=== PATIENT | male | born 1985 | race Two or more races ===

== ENCOUNTER 2017-07-29 08:20 | Emergency (ER) | payer OTHER ==
[2017-07-29 08:27] VITALS: BP 118/73; PULSE 81; TEMP 98; BMI 29.4
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
== END 2017-07-29 09:22 | disposition home or self-care (01) ==
LOC: JERFT 08:20
DX: S63.501A Unspecified sprain of right wrist, initial encounter (principal); X58.XXXA Exposure to other specified factors, initial encounter; Y93.89 Activity, other specified; Y92.9 Unspecified place or not applicable; F17.210 Nicotine dependence, cigarettes, uncomplicated
CPT/HCPCS: 73110-TC-RT-FY; 99282-25

== ENCOUNTER 2021-08-09 17:22 | Emergency (ER) | payer OTHER ==
[2021-08-09 17:35] VITALS: BP 105/64; PULSE 79; TEMP 98.2; BMI 27.5
[2021-08-09 20:38] LABS: BASO % 0.6 % (0-2.0); EOS % 1.5 % (0-4.5); HEMATOCRIT 47.5 % (35.4-49); HEMOGLOBIN 16.2 GM/dL (11.7-16.9); LYMPH % 36.2 % (8-40); MCHC 34.1 g/dl (32.0-35.9); MEAN CELL VOLUME 90.9 fl (80-96); MEAN PLT VOLUME 7.2 fl (7.5-11.1); MONO % 7.1 % (3.8-10.2); NEUT % 54.6 % (42.8-82.8); PLATELET COUNT 268 10^3/uL (134-434); RBC 5.22 M/mm3 (4.00-5.60); RDW 13.4 % (11.9-15.9); WHITE BLOOD COUNT 11.5 K/mm3 (4.0-10.0)
[2021-08-09 20:57] LABS: CALCIUM 9.3 mg/dL (8.5-10.1)
[2021-08-09 20:58] LABS: ALBUMIN 4.2 g/dl (3.4-5.0)
[2021-08-09 21:01] LABS: CREATININE 0.8 mg/dL (0.55-1.3)
[2021-08-09 21:02] LABS: TOT PROT 7.3 g/dl (6.4-8.2)
[2021-08-09 21:03] LABS: BILIRUBIN,TOTAL 0.4 mg/dL (0.2-1)
== END 2021-08-09 22:36 | disposition home or self-care (01) ==
LOC: JER 17:22
DX: R07.89 Other chest pain (principal)
CPT/HCPCS: 36415; 71046-TC-FY; 80053; 84484; 85025; 85379; 93005; 93010; 99284-25

== ENCOUNTER 2023-06-09 16:17 | Emergency (ER) | payer OTHER ==
[2023-06-09 16:36] VITALS: BP 124/64; PULSE 77; RESP 18; TEMP 98.6; BMI 28.3
[2023-06-09] MEDS ORDERED: ACETAMINOPHEN 325 MG TABLET (FP) ONE (17:29)
[2023-06-09] MEDS: ACETAMINOPHEN 500 MG TABLET (FP) PO ONE (17:42)
== END 2023-06-09 18:50 | disposition home or self-care (01) ==
LOC: JERFT 16:17
DX: S60.932A Unspecified superficial injury of left thumb, initial encounter (principal); X50.1XXA Overexertion from prolonged static or awkward postures, initial encounter
CPT/HCPCS: 73130-TC-LT-FY; 99283-25